=== PATIENT | female | born 1950 | race Caucasian/White ===

== ENCOUNTER 2016-12-25 16:22 | Inpatient (IN) | payer MEDICARE, MEDICAID ==
[2016-12-25] VITALS (7 sets, daily range): BP systolic 136–160; BP diastolic 62–79; PULSE 84–92; RESP 12–28; TEMP 99.7; O2SAT 93–99
[~2016-12-25] VITALS: Ht 165.1 cm; Wt 89.6 kg
[~2016-12-25 16:22] MED LIST: ALBU8I INH; AZIT250T74 PO; BENZ1 PO; CETI10 PO; DULO30 PO; FURO1TAB93 PO; GLIP5 PO; KCL20 PO; LISI10 PO; LISI20 PO; NEUR100C PO; NEUR600T PO; PRED10 PO; PRED20 PO; RANI1TAB5 PO; RISP2TAB2 PO; SYMB160A INH; TIOT18I INH; ULTR50TA PO; Z.0.OXYGENDME NC; ZANTTAB9 PO
--- NOTE | 2016-12-25 17:11 | PD ---
HPI Chief Complaint: Respiratory Distress Time Seen by Provider: 17:01 Travel History International Travel<30 days: No Contact w/Intl Traveler<30days: No Traveled to known affect area: No History of Present Illness HPI The patient is a 66-year-old female who presents to the emergency department via EMS after she was found running around her neighborhood, stating that her trailer is going to explode, and was noted to be running around the neighborhood naked. The patient does have a history of schizophrenia. When police arrived the patient was uncooperative and in complaining of shortness of breath. Therefore, EMS provided the patient Solu-Medrol 125 mg intravenously and a DuoNeb. The patient does have a history of COPD and tobacco use. The patient denies any current hallucinations or delusions, but is a poor historian. The patient denies any fever, chills, or sweats. She does have a history of shortness of breath and chronic cough per her report. The patient denies any illicit drug use or alcohol use. Patient has any suicidal ideation or homicidal ideation. However, the patient is psychotic. PFSH Past Medical History Arthritis: Yes (OA) Bipolar Disorder: Yes Anxiety: Yes Cancer: No Cardiovascular Problems: Yes (pt has hypertension) Congestive Heart Failure: Yes COPD: Yes Diabetes: Yes Patient Takes Glucophage: No (PER EMS PT IS DIABETIC BUT IS NOT TAKING MEDS ) Diminished Hearing: No Endocrine: Yes Genitourinary: No Headaches: No Hypertension: Yes Musculoskeletal: Yes Neurologic: No Psychiatric: Yes Reproductive: No Respiratory: Yes Integumentary: Yes (REDNESS BILATERAL GROIN AREA, INCONTINENT OF OF URINE ) Schizophrenia: Yes Seizures: Yes Triglycerides - High: Yes Menopausal: Yes : 6 Para: 4 Miscarriage: 1 : 1 Past Surgical History Surgical History: Unable to Obtain Abdominal Surgery: Yes (hernia repair with mesh) Hysterectomy: Yes Other Surgery: Yes (SEE ED PSYCH SCREEN AND H&P) Social History Alcohol Use: No Tobacco Use: Yes Substance Use: No Allergies-Medications (Allergen,Severity, Reaction): Coded Allergies: Cipro (Verified Allergy, Severe, RASH, 04/09/16) Sulfa (Verified Allergy, Severe, hives, 04/09/16) Remeron Kerline-Tab (Verified Allergy, Mild, 04/09/16) Reported Meds & Prescriptions Reported Meds & Active Scripts Active Zithromax Z-Kurt (Azithromycin) 250 Mg Dspk 250 Mg PO DIRECTED 500 MG (2 tabs) day 1, then 1 tab days 2-5. Deltasone (Prednisone) 20 Mg Tab 40 Mg PO DAILY 4 Days Reported Promethazine (Promethazine HCl) 12.5 Mg Tab 12.5 Mg PO Q6-8HR PRN Advair Diskus Inh (Fluticasone-Salmeterol Inh) 250-50 Mcg/Blist Aer 1 Puff INH BID Rinse mouth after use. Tramadol (Tramadol HCl) 50 Mg Tab 50-100 Mg PO Q4H PRN Spiriva Handihaler (Tiotropium Inh) 18 Mcg Cap 18 Mcg INH DAILY 1 capsule = 18 mcg K-Tab (Potassium Chloride) 20 Meq Tab 20 Meq PO DAILY Lisinopril 10 Mg Tab 10 Mg PO HS Glipizide 5 Mg Tab 5 Mg PO DAILY Take 30 minutes before a meal Gabapentin 100 Mg Cap 100 Mg PO TID Lasix (Furosemide) 40 Mg Tab 40 Mg PO DAILY Cymbalta DR (Duloxetine HCl) 30 Mg Capdr 30 Mg PO DAILY Symbicort Inh (Budesonide/Formoterol Fumarate) 160-4.5 Mcg/Act Aero 2 Puff INH BID Proair Hfa 8.5 GM Inh (Albuterol Sulfate) 90 Mcg/Act Aer 2 Puff INH QID PRN 108 mcg/actuation Review of Systems ROS Limitations: Psychotic Except as stated in HPI: all other systems reviewed are Neg Respiratory: Positive: Cough, Shortness of Breath Musculoskeletal: No: Weakness Neurologic: No: Dizziness, Focal Abnormalities Psychiatric: Positive: Disorder of Thought, No: Suicidal Ideations, Substance Abuse, Homicidal Ideation Physical Exam Narrative GENERAL: Awake, alert, 66-year-old female who states random things during the conversation. SKIN: Warm and dry. HEAD: Atraumatic. Normocephalic. EYES: Pupils equal and round. No scleral icterus. No injection or drainage. ENT: No nasal bleeding or discharge. Breath smells of tobacco. NECK: Trachea midline. No JVD. CARDIOVASCULAR: Regular rate and rhythm. No murmur appreciated. RESPIRATORY: No accessory muscle use. Prolonged expiratory phase with late wheeze. GASTROINTESTINAL: Abdomen soft, non-tender, nondistended. No rebound tenderness. MUSCULOSKELETAL: No obvious deformities. No clubbing. No cyanosis. No edema. NEUROLOGICAL: Awake and alert. No obvious cranial nerve deficits. Motor grossly within normal limits. Normal speech. Answers to name and date of , but will not tell me the year, month, president [facility]. PSYCHIATRIC: Appears psychotic. Data Data Last Documented VS Vital Signs Date Time Temp Pulse Resp B/P Pulse Ox O2 Delivery O2 Flow Rate FiO2 12/26/16 15:08 94 21 12/26/16 14:00 99.1 84 18 138/71 Room Air Orders Complete Blood Count With Diff (12/25/16 17:06) Comprehensive Metabolic Panel (12/25/16 17:06) B-Type Natriuretic Peptide (12/25/16 17:06) Magnesium (Mg) (12/25/16 17:06) Ckmb (Isoenzyme) Profile (12/25/16 17:06) Troponin I (12/25/16 17:06) Iv Access Insert/Monitor (12/25/16 17:06) Electrocardiogram (12/25/16 17:06) Ecg Monitoring (12/25/16 17:06) Oximetry (12/25/16 17:06) Oxygen Administration (12/25/16 17:06) Chest, Single Ap (12/25/16 17:06) Sodium Chloride 0.9% Flush (Ns Flush) (12/25/16 17:15) Albuterol-Ipratropium Neb (Duoneb Neb) (12/25/16 17:15) Psych Screen (12/25/16 17:06) Lactic Acid (12/25/16 17:06) Alcohol (Ethanol) (12/25/16 17:06) Drug Screen, Random Urine (12/25/16 17:06) Urinalysis - C+S If Indicated (12/25/16 17:06) Cath For Specimen (12/25/16 20:00) Diet Diabetic (12/26/16 Breakfast) Diet Diabetic (12/26/16 Lunch) Albuterol-Ipratropium Neb (Duoneb Neb) (12/26/16 14:45) Budesonide Neb (Pulmicort Respule Neb) (12/26/16 14:45) Admit Order (Ed Use Only) (12/26/16 ) Admit To Inpatient Psych (12/26/16 ) Code Status (12/26/16 16:52) Vital Signs (Adult) [id number] (12/26/16 16:52) Activity Oob Ad Cyndie (12/26/16 16:52) Level Of Observation (Psych) (12/26/16 16:52) Aims-Abnormal Invol Move Scale ONCE (12/26/16 16:52) Acetaminophen (Tylenol) (12/26/16 17:00) Magnesium Hydroxide Liq (Milk Of Magnesi (12/26/16 17:00) Al-Mag Hy-Si 40-40-4 Mg/Ml Liq (Mag-Al P (12/26/16 17:00) Nicotine 21 Mg Patch.24 Hr (Habitrol 21 (12/27/16 09:00) Basic Metabolic Panel (Bmp) (12/27/16 06:00) Lipid Profile (12/27/16 06:00) Hemoglobin (Hgb) A1c (12/27/16 06:00) Consult Hospitalist (12/26/16 ) Remove Old Patch (12/27/16 09:00) Labs Laboratory Tests Test 12/25/16 12/25/16 17:05 21:27 White Blood Count 14.1 TH/MM3 Red Blood Count 4.89 MIL/MM3 Hemoglobin 14.9 GM/DL Hematocrit 43.6 % Mean Corpuscular Volume 89.2 FL Mean Corpuscular Hemoglobin 30.5 PG Mean Corpuscular Hemoglobin 34.2 % Concent Red Cell Distribution Width 14.2 % Platelet Count 266 TH/MM3 Mean Platelet Volume 8.6 FL Neutrophils (%) (Auto) 60.8 % Lymphocytes (%) (Auto) 30.0 % Monocytes (%) (Auto) 7.9 % Eosinophils (%) (Auto) 0.6 % Basophils (%) (Auto) 0.7 % Neutrophils # (Auto) 8.6 TH/MM3 Lymphocytes # (Auto) 4.2 TH/MM3 Monocytes # (Auto) 1.1 TH/MM3 Eosinophils # (Auto) 0.1 TH/MM3 Basophils # (Auto) 0.1 TH/MM3 CBC Comment DIFF FINAL Differential Comment Sodium Level 135 MEQ/L Potassium Level 3.9 MEQ/L Chloride Level 100 MEQ/L Carbon Dioxide Level 25.1 MEQ/L Anion Gap 10 MEQ/L Blood Urea Nitrogen 10 MG/DL Creatinine 0.71 MG/DL Estimat Glomerular Filtration 82 ML/MIN Rate Random Glucose 108 MG/DL Lactic Acid Level 1.8 mmol/L Calcium Level 10.1 MG/DL Magnesium Level 1.7 MG/DL Total Bilirubin 0.5 MG/DL Aspartate Amino Transf 14 U/L (AST/SGOT) Alanine Aminotransferase 21 U/L (ALT/SGPT) Alkaline Phosphatase 155 U/L Total Creatine Kinase 82 U/L Troponin I 0.03 NG/ML B-Type Natriuretic Peptide 30 PG/ML Total Protein 6.8 GM/DL Albumin 3.7 GM/DL Ethyl Alcohol Level LESS THAN 3 MG/DL Urine Color YELLOW Urine Turbidity CLEAR Urine pH 5.5 Urine Specific Arnold 1.006 Urine Protein NEG mg/dL Urine Glucose (UA) NEG mg/dL Urine Ketones 10 mg/dL Urine Occult Blood SMALL Urine Nitrite NEG Urine Bilirubin NEG Urine Urobilinogen LESS THAN 2.0 MG/DL Urine Leukocyte Esterase NEG Urine RBC 3 /hpf Urine Squamous Epithelial <1 /hpf Cells Microscopic Urinalysis Comment CULT NOT INDICATED Urine Opiates Screen NEG Urine Barbiturates Screen NEG Urine Amphetamines Screen NEG Urine Benzodiazepines Screen NEG Urine Cocaine Screen NEG Urine Cannabinoids Screen NEG MDM Medical Decision Making Medical Screen Exam Complete: Yes Emergency Medical Condition: Yes Medical Record Reviewed: Yes Interpretation(s) EKG reveals normal sinus rhythm with a rate 89. Left bundle-branch block. Last Impressions Chest X-Ray 12/25/16 1706 Signed Impressions: Service Date/Time: Sunday, December 25, 2016 17:04 - CONCLUSION: No acute disease. Gurinder Teran MD Laboratory Tests Test 12/25/16 12/25/16 17:05 21:27 White Blood Count 14.1 TH/MM3 Red Blood Count 4.89 MIL/MM3 Hemoglobin 14.9 GM/DL Hematocrit 43.6 % Mean Corpuscular Volume 89.2 FL Mean Corpuscular Hemoglobin 30.5 PG Mean Corpuscular Hemoglobin 34.2 % Concent Red Cell Distribution Width 14.2 % Platelet Count 266 TH/MM3 Mean Platelet Volume 8.6 FL Neutrophils (%) (Auto) 60.8 % Lymphocytes (%) (Auto) 30.0 % Monocytes (%) (Auto) 7.9 % Eosinophils (%) (Auto) 0.6 % Basophils (%) (Auto) 0.7 % Neutrophils # (Auto) 8.6 TH/MM3 Lymphocytes # (Auto) 4.2 TH/MM3 Monocytes # (Auto) 1.1 TH/MM3 Eosinophils # (Auto) 0.1 TH/MM3 Basophils # (Auto) 0.1 TH/MM3 CBC Comment DIFF FINAL Differential Comment Sodium Level 135 MEQ/L Potassium Level 3.9 MEQ/L Chloride Level 100 MEQ/L Carbon Dioxide Level 25.1 MEQ/L Anion Gap 10 MEQ/L Blood Urea Nitrogen 10 MG/DL Creatinine 0.71 MG/DL Estimat Glomerular Filtration 82 ML/MIN Rate Random Glucose 108 MG/DL Lactic Acid Level 1.8 mmol/L Calcium Level 10.1 MG/DL Magnesium Level 1.7 MG/DL Total Bilirubin 0.5 MG/DL Aspartate Amino Transf 14 U/L (AST/SGOT) Alanine Aminotransferase 21 U/L (ALT/SGPT) Alkaline Phosphatase 155 U/L Total Creatine Kinase 82 U/L Troponin I 0.03 NG/ML B-Type Natriuretic Peptide 30 PG/ML Total Protein 6.8 GM/DL Albumin 3.7 GM/DL Ethyl Alcohol Level LESS THAN 3 MG/DL Urine Color YELLOW Urine Turbidity CLEAR Urine pH 5.5 Urine Specific Arnold 1.006 Urine Protein NEG mg/dL Urine Glucose (UA) NEG mg/dL Urine Ketones 10 mg/dL Urine Occult Blood SMALL Urine Nitrite NEG Urine Bilirubin NEG Urine Urobilinogen LESS THAN 2.0 MG/DL Urine Leukocyte Esterase NEG Urine RBC 3 /hpf Urine Squamous Epithelial <1 /hpf Cells Microscopic Urinalysis Comment CULT NOT INDICATED Urine Opiates Screen NEG Urine Barbiturates Screen NEG Urine Amphetamines Screen NEG Urine Benzodiazepines Screen NEG Urine Cocaine Screen NEG Urine Cannabinoids Screen NEG Differential Diagnosis Differential diagnosis includes psychosis, schizophrenia, delirium, COPD, pneumonia, sepsis, congestive heart failure, pleural effusion, medication reaction. Narrative Course IV was established, labs are drawn and sent, and the patient was placed on cardiac telemetry monitoring and continuous pulse oximetry monitoring. EKG was ordered and interpreted. Chest x-ray was ordered. The patient received steroids prior to arrival, was administered duo nebs 2 in the emergency department. Psychiatric evaluation was ordered. The patient's chest x-ray was unremarkable. The patient's oxygen saturation varied between 9396% on room air. The patient had no obvious distress, was lying supine comfortably. The patient is medically clear to be evaluated by psychiatry. Patient is obviously psychotic with a history of schizophrenia, psychiatric evaluation has been ordered, disposition as per psych. Diagnosis Primary Impression: Psychosis Qualified Code: F29 - Psychosis, unspecified psychosis type Additional Impressions: Schizophrenia Qualified Code: F20.9 - Schizophrenia, unspecified type COPD (chronic obstructive pulmonary disease) Qualified Code: J44.1 - Chronic obstructive pulmonary disease with acute exacerbation Med/Other Pt SpecificInfo: Prescription(s) given Scripts Azithromycin (Zithromax Z-Kurt)250 Mg [id number] Mg PO DIRECTED #1 DSPK Ref 0 500 MG (2 tabs) day 1, then 1 tab days 2-5. Prov:Alvin Lancaster MD 12/26/16 Prednisone (Deltasone)20 Mg Tab40 Mg PO DAILY 4 Days Ref 0 Prov:Alvin Lancaster MD 12/26/16 Condition: Stable Alvin Lancaster MD Dec 25, 2016 17:11
[2016-12-25] MEDS ORDERED: SODIUM CHLORIDE 0.9% FLUSH 5 ML FLUSH IVF PRN (17:15)
--- NOTE | 2016-12-25 17:28 | RADRPT ---
EXAM DATE/TIME: 12/25/2016 17:04 [facility] COMPARISON: CHEST SINGLE AP, April 09, 2016, 18:41. INDICATIONS : Short of breath. MEDICAL HISTORY : Chronic obstructive pulmonary disease. Dementia SURGICAL HISTORY : None. ENCOUNTER: Initial ACUITY: 1 day PAIN SCORE: 0/10 LOCATION: Bilateral chest FINDINGS: A single view of the chest demonstrates the lungs to be symmetrically aerated without evidence of mas s, infiltrate or effusion. The cardiomediastinal contours are unremarkable. Osseous structures are intact. CONCLUSION: No acute disease. Gurinder Teran MD on December 25, 2016 at 17:26 Board Certified Radiologist. This report was verified electronically.
[2016-12-25] MEDS: RESP: ALBUTEROL 2.5 MG/IPRATROPIUM 0.5 MG NEB (SCH) INH (17:37)
[2016-12-25] MEDS ORDERED: ALBUAER3 INH (18:19)
[2016-12-25] MEDS ORDERED: LISI10TA3 PO (18:19)
[2016-12-25] MEDS ORDERED: SPIRCAP INH (18:19)
[2016-12-25] MEDS ORDERED: PROM12.54 PO (18:19)
[2016-12-25] MEDS ORDERED: SYMB160A INH (18:19)
[2016-12-25] MEDS ORDERED: GABA100C4 PO (18:19)
[2016-12-25] MEDS ORDERED: CYMB30CA PO (18:19)
[2016-12-25] MEDS ORDERED: GLIP5TAB8 PO (18:19)
[2016-12-25] MEDS ORDERED: FURO1TAB60 PO (18:19)
[2016-12-25] MEDS ORDERED: ADVA250A INH (18:19)
[2016-12-25] MEDS ORDERED: POTA1TAB4 PO (18:19)
[2016-12-25] MEDS ORDERED: TRAM50TA PO (18:19)
[2016-12-25 18:34] LABS: AUTOMATED NEUTROPHIL # 8.6 TH/MM3 (1.8-7.7); BASOPHIL # 0.1 TH/MM3 (0-0.2); BASOPHIL % 0.7 % (0.0-2.0); EOSINOPHIL # 0.1 TH/MM3 (0-0.4); EOSINOPHIL % 0.6 % (0.0-4.0); HEMATOCRIT 43.6 % (35.0-46.0); HEMO FLAGS DIFF FINAL; LYMPHOCYTE # 4.2 TH/MM3 (1.0-4.8); MEAN CELL VOLUME 89.2 FL (80.0-100.0); MEAN CORPUSCULAR HEMOGLOBIN 30.5 PG (27.0-34.0); MEAN CORPUSCULAR HGB CONC 34.2 % (32.0-36.0); MONO % 7.9 % (0.0-8.0); NEUT % 60.8 % (16.0-70.0); PLATELET COUNT 266 TH/MM3 (150-450); RED BLOOD COUNT 4.89 MIL/MM3 (4.00-5.30); RED CELL DISTRIBUTION WIDTH 14.2 % (11.6-17.2); WHITE BLOOD COUNT 14.1 TH/MM3 (4.0-11.0)
[2016-12-25 18:51] LABS: ANION GAP 10 MEQ/L (5-15); AST (GOT) 14 U/L (15-37); BICARBONATE 25.1 MEQ/L (21.0-32.0); BLOOD UREA NITROGEN 10 MG/DL (7-18); CHLORIDE 100 MEQ/L (98-107); GLOMERULAR FILTRATION RATE 82 ML/MIN (>89); MAGNESIUM 1.7 MG/DL (1.5-2.5); POTASSIUM 3.9 MEQ/L (3.5-5.1); SODIUM (NA) 135 MEQ/L (136-145)
[2016-12-25 18:56] LABS: ALKALINE PHOSPHATASE 155 U/L (45-117); ALT (GPT) 21 U/L (10-53); TOTAL BILIRUBIN ADULT 0.5 MG/DL (0.2-1.0)
[2016-12-25 18:57] LABS: CREATINE KINASE 82 U/L (26-192)
[2016-12-25 21:52] LABS: BLOOD, URINE SMALL (NEG); COMMENT (UR) CULT NOT INDICATED; CULTURE IF INDICATED CULT NOT INDICATED; GLUCOSE,URINE NEG (NEG); KETONE, URINE 10 mg/dL (NEG); NITRITE,URINE NEG (NEG); PH, URINE 5.5 (5.0-8.5); SQUAMOUS EPITHELIAL CELL URINE <1 /hpf (0-5); URINE COLOR YELLOW (YELLW/STRAW)
[2016-12-25 21:57] LABS: AMPHETAMINE, URINE NEG (NEG); BARBITURATES, URINE NEG (NEG); COCAINE, URINE NEG (NEG)
[2016-12-26] VITALS (7 sets, daily range): BP systolic 138–158; BP diastolic 62–72; PULSE 69–90; RESP 12–18; TEMP 98.6–99.1; O2SAT 92–96
[2016-12-26] MEDS ORDERED: ZITHTAB PO (00:54)
[2016-12-26] MEDS ORDERED: PRED-503 PO (00:54)
[2016-12-26] MEDS ORDERED: RESP: BUDESONIDE 0.5 MG/2 ML NEB NEB ONE (14:45)
[2016-12-26] MEDS: RESP: ALBUTEROL 2.5 MG/IPRATROPIUM 0.5 MG NEB (SCH) INH ×3 (14:45→15:08)
--- NOTE | 2016-12-26 15:14 | EKG ---
Date Performed: 12/25/2016 Time Performed: 18:59:10 PTAGE: 66 years EKG: Sinus rhythm LEFT BUNDLE BRANCH BLOCK Compared to previous tracing, left bundle branch block is new ABNORMAL ECG PREVIOUS TRACING : 11/04/2015 19.04 DOCTOR: Art Ko Interpretating Date/Time 12/26/2016 15:14:13
--- NOTE | 2016-12-26 16:40 | PD ---
History of Present Illness Chief Complaint: Respiratory Distress Time Seen by Provider: 16:30 Travel History International Travel<30 Days: No Contact w/Intl Traveler<30days: No Known affected area: No Legal Status Legal Status: Hale Act Hale Act Signed By: Geoffrey Grijalva Comment: [place] History of Present Illness: History of Present Illness The patient is a 66-year-old female who presents to the emergency department via EMS on voluntary basis after she was found running around her neighborhood, stating that her trailer is going to explode, and was noted to be running around the neighborhood naked. When police arrived the patient was uncooperative and in complaining of shortness of breath. However, the patient is psychotic. Seen in J pod. Awake, alert, oriented, speech is loud. Patient continues to report that her house was going to explode. She is unable to to provide any other information and has no explanation for why she was running around naked. Mood is irritable. Appears to be reacting to internal stimuli. It is unclear if she has been medication compliant since her discharge from inpatient care. She continues to state that she is here" to see a lung doctor". No other clinical information is obtained. PFSH Past Medical History Arthritis: Yes (OA) Bipolar Disorder: Yes Anxiety: Yes Cancer: No Cardiovascular Problems: Yes (pt has hypertension) Congestive Heart Failure: Yes COPD: Yes Diabetes: Yes Patient Takes Glucophage: No (PER EMS PT IS DIABETIC BUT IS NOT TAKING MEDS ) Diminished Hearing: No Endocrine: Yes Genitourinary: No Headaches: No Hypertension: Yes Musculoskeletal: Yes Neurologic: No Psychiatric: Yes Reproductive: No Respiratory: Yes Integumentary: Yes (REDNESS BILATERAL GROIN AREA, INCONTINENT OF OF URINE ) Schizophrenia: Yes Seizures: Yes Triglycerides - High: Yes Menopausal: Yes : 6 Para: 4 Miscarriage: 1 : 1 Past Surgical History Surgical History: Unable to Obtain Abdominal Surgery: Yes (hernia repair with mesh) Hysterectomy: Yes Other Surgery: Yes (SEE ED PSYCH SCREEN AND H&P) Psychiatric History Psychiatric History Hx Psychiatric Treatment: HX OF ANXIETY, BIPOLAR D/O AND SCHIZOPHRENIA History of Inpatient Treatment: Yes (Last hosp in Oct under the care of Dr. Pruitt) Social History Hx Alcohol Use: No Hx Tobacco Use: Yes Hx Substance Use: No Substance Use Type: Nicotine/Cigarettes Hx of Substance Use Treatment: No Family Psychiatric History Unable to obtain Allergies-Medications (Allergen,Severity, Reaction): Coded Allergies: Cipro (Verified Allergy, Severe, RASH, 04/09/16) Sulfa (Verified Allergy, Severe, hives, 04/09/16) Remeron Kerline-Tab (Verified Allergy, Mild, 04/09/16) Reported Meds & Prescriptions Reported Meds & Active Scripts Active Zithromax Z-Kurt (Azithromycin) 250 Mg Dspk 250 Mg PO DIRECTED 500 MG (2 tabs) day 1, then 1 tab days 2-5. Deltasone (Prednisone) 20 Mg Tab 40 Mg PO DAILY 4 Days Reported Promethazine (Promethazine HCl) 12.5 Mg Tab 12.5 Mg PO Q6-8HR PRN Advair Diskus Inh (Fluticasone-Salmeterol Inh) 250-50 Mcg/Blist Aer 1 Puff INH BID Rinse mouth after use. Tramadol (Tramadol HCl) 50 Mg Tab 50-100 Mg PO Q4H PRN Spiriva Handihaler (Tiotropium Inh) 18 Mcg Cap 18 Mcg INH DAILY 1 capsule = 18 mcg K-Tab (Potassium Chloride) 20 Meq Tab 20 Meq PO DAILY Lisinopril 10 Mg Tab 10 Mg PO HS Glipizide 5 Mg Tab 5 Mg PO DAILY Take 30 minutes before a meal Gabapentin 100 Mg Cap 100 Mg PO TID Lasix (Furosemide) 40 Mg Tab 40 Mg PO DAILY Cymbalta DR (Duloxetine HCl) 30 Mg Capdr 30 Mg PO DAILY Symbicort Inh (Budesonide/Formoterol Fumarate) 160-4.5 Mcg/Act Aero 2 Puff INH BID Proair Hfa 8.5 GM Inh (Albuterol Sulfate) 90 Mcg/Act Aer 2 Puff INH QID PRN 108 mcg/actuation Review of Systems ROS Limitations: Uncooperative, Psychotic Respiratory: COMPLAINS OF: Shortness of breath Exam Alert: Yes [place]: Person, Place, Date (partial) Mood: Angry Affect: Other (congruent) Speech: Clear, Illogical Eye Contact: Normal Memory Intact: Comment (not formally tetsed) Hallucinations: Other (appears internally preocupied) Delusions: Yes Delusion Type: Paranoid Suicidal: Ideation (deneis ) Homicidal: Ideation (deneis) Insight/Judgement poor. poor MDM Medical Decision Making Medical Record Reviewed: Yes Assessment/Plan Patient placed under a BA at this time for further evaluation and to maintain safety. Inpatient psychiatric treatmentis recommended to maintain her safety and stabilize meidcations Orders Complete Blood Count With Diff (12/25/16 17:06) Comprehensive Metabolic Panel (12/25/16 17:06) B-Type Natriuretic Peptide (12/25/16 17:06) Magnesium (Mg) (12/25/16 17:06) Ckmb (Isoenzyme) Profile (12/25/16 17:06) Troponin I (12/25/16 17:06) Iv Access Insert/Monitor (12/25/16 17:06) Electrocardiogram (12/25/16 17:06) Ecg Monitoring (12/25/16 17:06) Oximetry (12/25/16 17:06) Oxygen Administration (12/25/16 17:06) Chest, Single Ap (12/25/16 17:06) Sodium Chloride 0.9% Flush (Ns Flush) (12/25/16 17:15) Albuterol-Ipratropium Neb (Duoneb Neb) (12/25/16 17:15) Psych Screen (12/25/16 17:06) Lactic Acid (12/25/16 17:06) Alcohol (Ethanol) (12/25/16 17:06) Drug Screen, Random Urine (12/25/16 17:06) Urinalysis - C+S If Indicated (12/25/16 17:06) Cath For Specimen (12/25/16 20:00) Diet Diabetic (12/26/16 Breakfast) Diet Diabetic (12/26/16 Lunch) Diet Diabetic (12/26/16 Dinner) Albuterol-Ipratropium Neb (Duoneb Neb) (12/26/16 14:45) Budesonide Neb (Pulmicort Respule Neb) (12/26/16 14:45) Results Vital Signs Date Time Temp Pulse Resp B/P Pulse Ox O2 Delivery O2 Flow Rate FiO2 12/26/16 15:08 94 21 12/26/16 14:00 99.1 84 18 138/71 92 Room Air 12/26/16 07:26 69 16 149/68 95 Room Air 12/26/16 06:24 90 18 144/66 94 Room Air 12/26/16 02:57 78 12 158/62 96 Room Air 12/25/16 23:37 88 16 140/66 93 Room Air 12/25/16 22:25 84 14 136/62 96 Room Air 12/25/16 21:55 86 12 148/68 94 Room Air 12/25/16 20:50 84 12 146/70 96 Room Air 12/25/16 19:42 88 14 150/72 99 Room Air 12/25/16 18:51 95 Room Air 12/25/16 18:51 95 Room Air 12/25/16 16:45 28 94 Room Air Laboratory Tests Test 12/25/16 12/25/16 17:05 21:27 White Blood Count 14.1 Red Blood Count 4.89 Hemoglobin 14.9 Hematocrit 43.6 Mean Corpuscular Volume 89.2 Mean Corpuscular Hemoglobin 30.5 Mean Corpuscular Hemoglobin 34.2 Concent Red Cell Distribution Width 14.2 Platelet Count 266 Mean Platelet Volume 8.6 Neutrophils (%) (Auto) 60.8 Lymphocytes (%) (Auto) 30.0 Monocytes (%) (Auto) 7.9 Eosinophils (%) (Auto) 0.6 Basophils (%) (Auto) 0.7 Neutrophils # (Auto) 8.6 Lymphocytes # (Auto) 4.2 Monocytes # (Auto) 1.1 Eosinophils # (Auto) 0.1 Basophils # (Auto) 0.1 CBC Comment DIFF FINAL Differential Comment Sodium Level 135 Potassium Level 3.9 Chloride Level 100 Carbon Dioxide Level 25.1 Anion Gap 10 Blood Urea Nitrogen 10 Creatinine 0.71 Estimat Glomerular Filtration 82 Rate Random Glucose 108 Lactic Acid Level 1.8 Calcium Level 10.1 Magnesium Level 1.7 Total Bilirubin 0.5 Aspartate Amino Transf 14 (AST/SGOT) Alanine Aminotransferase 21 (ALT/SGPT) Alkaline Phosphatase 155 Total Creatine Kinase 82 Troponin I 0.03 B-Type Natriuretic Peptide 30 Total Protein 6.8 Albumin 3.7 Ethyl Alcohol Level LESS THAN 3 Urine Color YELLOW Urine Turbidity CLEAR Urine pH 5.5 Urine Specific [place] 1.006 Urine Protein NEG Urine Glucose (UA) NEG Urine Ketones 10 Urine Occult Blood SMALL Urine Nitrite NEG Urine Bilirubin NEG Urine Urobilinogen LESS THAN 2.0 Urine Leukocyte Esterase NEG Urine RBC 3 Urine Squamous Epithelial <1 Cells Microscopic Urinalysis Comment CULT NOT INDICATED Urine Opiates Screen NEG Urine Barbiturates Screen NEG Urine Amphetamines Screen NEG Urine Benzodiazepines Screen NEG Urine Cocaine Screen NEG Urine Cannabinoids Screen NEG Diagnosis Primary Impression: Schizophrenia Additional Impression: Psychosis Admitting Information Admitting Physician Requests: Admit Prescriptions Azithromycin (Zithromax Z-Kurt)250 Mg [id number] Mg PO DIRECTED #1 DSPK Ref 0 500 MG (2 tabs) day 1, then 1 tab days 2-5. Prov:Alvin Lancaster MD 12/26/16 Prednisone (Deltasone)20 Mg Tab40 Mg PO DAILY 4 Days Ref 0 Prov:Alvin Lancaster MD 12/26/16 Condition: Stable Problem Qualifiers Primary Impression: Schizophrenia Qualified Code: F20.9 - Schizophrenia, unspecified type Additional Impression: Psychosis Qualified Code: F29 - Psychosis, unspecified psychosis type Lisa Fall Dec 26, 2016 16:40
[2016-12-26] MEDS ORDERED: MAGNESIUM HYDROXIDE SUSP 30 ML CUP PO PRN (17:00)
[2016-12-26] MEDS ORDERED: ACETAMINOPHEN 325 MG TAB PO PRN (17:00)
[2016-12-26] MEDS ORDERED: ALUMINUM/MAGNESIUM/SIMETH 30 ML CUP PO PRN (17:00)
[2016-12-26] MEDS: GABAPENTIN 100 MG CAP PO SCH (18:00)
[2016-12-26] MEDS: LISINOPRIL 10 MG TAB PO SCH (20:52)
[2016-12-26] MEDS ORDERED: NON-FORMULARY DRUG (Fluticasone-Salmeterol Inh (Advair Diskus Inh) 1 PUFF) INH SCH (21:00)
[2016-12-26] MEDS: BUDESONIDE-FORMOTEROL 160/4.5 MCG INHALER INH SCH (21:00)
[2016-12-27] MEDS ORDERED: GLUCAGON 1 MG/ML VIAL OTHER PRN (05:00)
[2016-12-27] MEDS ORDERED: DEXTROSE 50% IN WATER 50 ML VIAL(D50) IV PUSH PRN (05:00)
[2016-12-27] MEDS: ALBUTEROL SULFATE 90 MCG/ACT HFA 8 GM INHALER INH PRN ×2 (05:08→08:15)
[2016-12-27 05:15] VITALS: BP 139/84; PULSE 71; RESP 18; TEMP 97.8; O2SAT 97
--- NOTE | 2016-12-27 05:35 | PD.CONS ---
HPI Service [facility] Consult Requested By Psychiatric services Reason for Consult Medical management including COPD Primary Care Physician Chino Hoffman MD Diagnoses: History of Present Illness This 66-year-old female patient who is currently an inpatient psychiatric center we have been consulted for assistance with medical management including COPD. Patient appears to be a poor historian and is agitated with questioning therefore information gathered from patient as well as prior computerized charting. Patient has a past medical history which includes schizophrenia, diabetes mellitus type 2, hypertension and COPD. In review of records patient was found running naked [place] her [place] stating that her trailer was going to explode. Patient as she is here she reports, "I have no home." Patient reports subjective fever but unable to give exact temperature. Patient MAXIMUM TEMPERATURE since arriving emergency department 99.7. Patient denies chills cough congestion chest pain nausea vomiting or diarrhea. Patient does report shortness of breath stating that she has a, "collapsed lung." Chest x- ray reviewed no pneumothorax identified in fact no acute disease identified on chest x-ray. Review of Systems Except as stated in HPI: all other systems reviewed are Neg Past Family Social History Allergies: Coded Allergies: Cipro (Verified Allergy, Severe, RASH, 04/09/16) Sulfa (Verified Allergy, Severe, hives, 04/09/16) Remeron Kerline-Tab (Verified Allergy, Mild, 04/09/16) Past Medical History schizophrenia, diabetes mellitus type 2, hypertension and COPD. Past Surgical History Abdominal hernia repair, hysterectomy Reported Medications Promethazine (Promethazine HCl) 12.5 Mg Tab 12.5 Mg PO Q6-8HR PRN Advair Diskus Inh (Fluticasone-Salmeterol Inh) 250-50 Mcg/Blist Aer 1 Puff INH BID Rinse mouth after use. Tramadol (Tramadol HCl) 50 Mg Tab 50-100 Mg PO Q4H PRN Spiriva Handihaler (Tiotropium Inh) 18 Mcg Cap 18 Mcg INH DAILY 1 capsule = 18 mcg K-Tab (Potassium Chloride) 20 Meq Tab 20 Meq PO DAILY Lisinopril 10 Mg Tab 10 Mg PO HS Glipizide 5 Mg Tab 5 Mg PO DAILY Take 30 minutes before a meal Gabapentin 100 Mg Cap 100 Mg PO TID Lasix (Furosemide) 40 Mg Tab 40 Mg PO DAILY Cymbalta DR (Duloxetine HCl) 30 Mg Capdr 30 Mg PO DAILY Symbicort Inh (Budesonide/Formoterol Fumarate) 160-4.5 Mcg/Act Aero 2 Puff INH BID Proair Hfa 8.5 GM Inh (Albuterol Sulfate) 90 Mcg/Act Aer 2 Puff INH QID PRN 108 mcg/actuation Active Ordered Medications Current Medications Medications (Trade) Dose Ordered Sig/Artur Route Start Time Stop Time Status Last Admin (NS Flush) 2 ml UNSCH PRN IVF 12/25/16 17:15 (Tylenol) 650 mg Q4H PRN PO 12/26/16 17:00 (Milk Of Magnesia Liq) 30 ml DAILY PRN PO 12/26/16 17:00 (Mag-Al Plus Susp Liq) 30 ml Q6H PRN PO 12/26/16 17:00 (Habitrol 21 Mg Patch.24 Hr) 1 patch DAILY T-DERMAL 12/27/16 09:00 Miscellaneous Information 1 DAILY T-DERMAL 12/27/16 09:00 (Proair Hfa Inh) 2 puff QID PRN INH 12/26/16 17:00 12/27/16 05:08 (Symbicort 160-4.5 Inh) 2 puff BID INH 12/26/16 21:00 (Cymbalta Dr) 30 mg DAILY PO 12/27/16 09:00 Future Hold (Lasix) 40 mg DAILY PO 12/27/16 09:00 (Neurontin) 100 mg TID PO 12/26/16 18:00 12/26/16 18:00 (Prinivil) 10 mg HS PO 12/26/16 21:00 12/26/16 20:52 (KCl) 20 meq DAILY PO 12/27/16 09:00 (Spiriva Inh) 18 mcg DAILY INH 12/27/16 09:00 (D50w (Vial) Inj) 25 ml UNSCH PRN IV PUSH 12/27/16 05:00 (Glucagon Inj) 1 mg UNSCH PRN OTHER 12/27/16 05:00 Family History Mother had cancer of unknown type Social History Smokes one pack serous per day for the past 30 years Denies EtOH use or illicit drug use Physical Exam Vital Signs Vital Signs Date Time Temp Pulse Resp B/P Pulse Ox O2 Delivery O2 Flow Rate FiO2 12/27/16 05:15 97.8 71 18 139/84 97 12/26/16 18:32 98.6 79 16 155/72 12/26/16 17:52 80 18 157/70 93 Room Air 12/26/16 15:08 94 21 12/26/16 14:00 99.1 84 18 138/71 92 Room Air 12/26/16 07:26 69 16 149/68 95 Room Air 12/26/16 06:24 90 18 144/66 94 Room Air Physical Exam GENERAL: This is a well-nourished, well-developed patient, in no apparent distress. SKIN: No rashes, ecchymoses or lesions. Cool and dry. HEAD: Atraumatic. Normocephalic. No temporal or scalp tenderness. EYES: Extraocular motions intact. No scleral icterus. No injection or drainage. CARDIOVASCULAR: Regular rate and rhythm without murmurs, gallops, or rubs. RESPIRATORY: Clear to auscultation. Breath sounds equal bilaterally. No wheezes , rales, or rhonchi. GASTROINTESTINAL: Abdomen soft, non-tender, nondistended. No guarding. MUSCULOSKELETAL: Extremities without clubbing, cyanosis, or edema. No joint tenderness, effusion, or edema noted. No calf tenderness. Negative Homans sign bilaterally. NEUROLOGICAL: Awake and alert. No focal deficits identified. Motor and sensory grossly within normal limits. Five out of 5 muscle strength in all muscle groups. Normal speech. Result Diagram: 12/25/16170412/25/161704 Imaging Last Impressions Chest X-Ray 12/25/161705 Signed Impressions: Service Date/Time: Sunday, December 25, 2016 17:04 - CONCLUSION: No acute disease. Gurinder Teran MD Assessment and Plan Assessment and Plan This 66-year-old female patient who is currently an inpatient psychiatric center we have been consulted for assistance with medical management including COPD. Patient appears to be a poor historian and is agitated with questioning therefore information gathered from patient as well as prior computerized charting. Patient has a past medical history which includes schizophrenia, diabetes mellitus type 2, hypertension and COPD. Paranoid schizophrenia management per psychiatric team COPD chronic does not appear to be in acute exacerbation Continue Symbicort scheduled, Spiriva scheduled and albuterol as needed DC Advair Chest x-ray reviewed by myself as well as Dr. Parrish reveals no acute disease Mild leukocytosis 14.1 possibly stress response will recheck CBC Diabetes mellitus continue home glipizide with Accu-Cheks before meals at bedtime sliding scale insulin coverage Hypertension continue lisinopril DVT prophylaxis patient is ambulatory Discussed plan of care with patient as well as RN Written by Hayley Alicea, acting as scribe for Dr. Parrish on 12/27/16 at 05: 33. All or portions of this note were transcribed by scribe [Hayley Alicea]. I , Dr. Darinel Parrish personally performed the history, physical exam, and medical decision making; and confirmed the accuracy of the information in the transcribed note. Authenticated by Dr. Darinel Parrish on 12/27/16 at 0533 Hayley Alicea Dec 27, 2016 05:34 Darinel Parrish MD Jan 13, 2017 08:27
[2016-12-27] MEDS: INSULIN ASPART SUPPLEMENTAL SCALE SQ SCH ×4 (07:00→20:26)
[2016-12-27] MEDS ORDERED: INSULIN ASPART SUPPLEMENTAL SCALE SQ SCH (07:00)
[2016-12-27 08:26] LABS: HDL CHOLESTEROL 48.8 MG/DL (40.0-60.0)
[2016-12-27 08:32] LABS: ANION GAP 7 MEQ/L (5-15); BICARBONATE 26.8 MEQ/L (21.0-32.0); BLOOD UREA NITROGEN 14 MG/DL (7-18); CHLORIDE 106 MEQ/L (98-107); GLOMERULAR FILTRATION RATE 71 ML/MIN (>89); LDL CHOLESTEROL 66 MG/DL (0-99); POTASSIUM 4.6 MEQ/L (3.5-5.1); SODIUM (NA) 140 MEQ/L (136-145)
[2016-12-27] MEDS: REMOVE OLD PATCH T-DERMAL SCH (09:00)
[2016-12-27] MEDS ORDERED: diphenhydrAMINE HCL 50 MG/ML VIAL IM ONE (09:15)
[2016-12-27] MEDS: NICOTINE 21 MG/24 HR PATCH T-DERMAL SCH (09:56)
[2016-12-27] MEDS: GABAPENTIN 100 MG CAP PO SCH ×3 (09:56→18:40)
[2016-12-27] MEDS: glipiZIDE 5 MG TAB PO SCH (09:56)
[2016-12-27] MEDS: POTASSIUM CHLORIDE 20 MEQ CONTROLLED RELEASE TAB PO SCH (09:57)
[2016-12-27] MEDS: FUROSEMIDE 40 MG TAB PO SCH (09:57)
[2016-12-27] MEDS: TIOTROPIUM BROMIDE 18 MCG INH INH SCH (09:58)
[2016-12-27] MEDS: BUDESONIDE-FORMOTEROL 160/4.5 MCG INHALER INH SCH ×2 (10:00→21:00)
[2016-12-27] MEDS ORDERED: MAGNESIUM HYDROXIDE SUSP 30 ML CUP PO PRN (12:15)
[2016-12-27] MEDS ORDERED: ALUMINUM/MAGNESIUM/SIMETH 30 ML CUP PO PRN (12:15)
[2016-12-27] MEDS ORDERED: ACETAMINOPHEN 325 MG TAB PO PRN (12:15)
[2016-12-27] MEDS ORDERED: diphenhydrAMINE HCL 50 MG CAP PO PRN ×2 (12:15)
--- NOTE | 2016-12-27 12:25 | HHI.HP ---
Provisional Diagnosis Admission Date Dec 26, 2016 at 16:58 [place] I. Schizophrenia chronic paranoid type f20.0 Certification of Person's Competence To Provide Express and Informed Consent I have personally examined Jolynn Zuniga , a person being served at [facility] on, Dec 27, 2016 12:15. Express and informed consent means consent voluntarily given in writing, by a competent person, after sufficient explanation and disclosure of the subject matter involved to enable the person to make a knowing and willful decision without any element of force, fraud, deceit, duress, or other form of constraint or coercion. This person is 18 years of age or older, is not now known to be incompetent to consent to treatment with a guardian advocate, and does not have a health care surrogate or proxy currently making medical treatment decisions. I have found this person to be one of the following: [] Competent to provide express and informed consent, as defined above, for voluntary admission to this facility and is competent to provide express and informed consent for treatment. He/she has the consistent capacity to make well reasoned, willful, and knowing decisions concerning his or her medical or mental health treatment. The person fully and consistently understands the purpose of the admission for examination/placement and is fully capable of personally exercising all rights [place] [] Incompetent to provide express and informed consent to voluntary admission, and this is incompetent to provide express and informed consent to treatment. The person must be transferred to involuntary status and a petition for a guardian advocate filed with the Circuit Court. [x] Refusing to provide express and informed consent to voluntary admission but is competent to provide express and informed consent for treatment. The person must be discharged or transferred to involuntary status. Form shall be completed within 24 hours of a person's arrival at the receiving facility and filed in the clinical record of each person: 1. Admitted on a voluntary basis 2. Permitted to provide express and informed consent to his/her own treatment 3. Allowed to transfer from involuntary to voluntary status 4. Prior to permitting a person to consent to his or her own treatment after having been previously found incompetent to consent to treatment. History of Present Illness Capacity: Has Capacity (has capacity to sign for medications lacks capacity to sign for admission) HPI Patient is a 66-year-old white female known to us from prior hospitalization most recently being under my care 11/05/15 through 11/18/15 visited [phone]. At this time patient was admitted under [place] act signed by Lisa Fall nurse practitioner stating patient found outside her home naked claiming her home was going to explode patient seen screened in the ED urine toxicology negative bladder: Negative. At the present time patient sitting in the day room on 2500 nurse Lacie present throughout session patient loud labile ranging from talking to me markedly confused and disorganized to screaming at perceived noises around her. However she is fairly well oriented she notices and [place] in [place]'s 2016 abnormality was Gutierrez's Day. Though she does state that she knows there are gas leaks in her trailer that she is afraid of them which is why she went outside make it to get help. She is vague about compliance with her medication states she lives that Mr. Zuniga though she is vague about whether it is her a lot. She denies having any children. Does deny any past physical or sexual abuse. Does denies suicidality or homicidality. While she denies voices she appears to be responding to internal stimuli he does have some significant thought blocking. In any event at the present time patient meets criteria for involuntary psychiatric hospitalization under the [place] act I'll do first opinion requests second opinion. The first will be compliant with her medications we'll continue her medications through the med reconciliation and also add Respinol 2 mg M tab twice a day. Hopefully we can get some further collaborating evidence and history if there is a family member that lives with her Review of Systems ROS Limitations: Psychotic, Other (labile) Except as stated in HPI: all other systems reviewed are Neg Past Psych History Psychological trauma history Patient denies physical or sexual abuse Violence risk - others (6 mos) Low Violence risk - self (6 mos) Low Substance Abuse History Drugs/Alcohol past 12 months Denies Past Family Social History Coded Allergies: Cipro (Verified Allergy, Severe, RASH, 04/09/16) Sulfa (Verified Allergy, Severe, hives, 04/09/16) Remeron Kerline-Tab (Verified Allergy, Mild, 04/09/16) Past Medical History Multiple please see hospitalist Active Scripts Azithromycin (Zithromax Z-Kurt)250 Mg [id number] Mg PO DIRECTED #1 DSPK Ref 0 500 MG (2 tabs) day 1, then 1 tab days 2-5. Prov:Alvin Lancaster MD 12/26/16 Prednisone (Deltasone)20 Mg Tab40 Mg PO DAILY 4 Days Ref 0 Prov:Alvin Lancaster MD 12/26/16 Reported Medications Promethazine 12.5 Mg Tab12.5 Mg PO Q6-8HR PRN (NAUSEA OR VOMITING) Ref 0 12/25/16 Fluticasone-Salmeterol Inh (Advair Diskus Inh)250-50 Mcg/Blist Aer1 Puff INH BID #1 INHALER Ref 0 Rinse mouth after use. 12/25/16 Tramadol 50 Mg [id number] Mg PO Q4H PRN (PAIN) Ref 0 12/25/16 Tiotropium Inh (Spiriva Handihaler)18 Mcg Cap18 Mcg INH DAILY #30 CAP Ref 0 1 capsule = 18 mcg 12/25/16 Potassium Chloride ER (K-Tab)20 Meq Tab20 Meq PO DAILY #30 TAB Ref 0 12/25/16 Lisinopril 10 Mg Tab10 Mg PO HS #30 TAB Ref 0 12/25/16 Glipizide 5 Mg Tab5 Mg PO DAILY #30 TAB Ref 0 Take 30 minutes before a meal 12/25/16 Gabapentin 100 Mg [id number] Mg PO TID #90 CAP Ref 0 12/25/16 Furosemide (Lasix)40 Mg Tab40 Mg PO DAILY #30 TAB Ref 0 12/25/[address] (Cymbalta DR)30 Mg Capdr30 Mg PO DAILY #30 CAP Ref 0 12/25/16 Budesonide-Formoterol Inh (Symbicort Inh)160-4.5 Mcg/Act Aero2 Puff INH BID #1 INHALER Ref 0 12/25/16 Albuterol 8.5 GM Inh (Proair Hfa 8.5 GM Inh)90 Mcg/Act Aer2 Puff INH QID PRN ( SHORTNESS OF BREATH) #1 INHALER Ref 0 108 mcg/actuation 12/25/16 Discontinued Reported Medications Tramadol HCl (Ultram)50 Mg Tab50 Mg PO Q6HR PRN (PAIN) 07/18/15 Ranitidine Hcl (Zantac 75) Tab75 Mg PO DAILY 07/18/15 Gabapentin 600 Mg [id number] Mg PO TID 07/18/15 Discontinued Scripts Prednisone (Deltasone 20 Mg Tab)20 Mg Tab40 Mg PO DAILY 4 Days Prov:Virgil Chino 04/10/16 Azithromycin (Zithromax)250 Mg [id number] Mg PO DAILY 3 Days Prov:Virgil Chino 04/10/16 Risperidone (Risperdal)2 Mg Tab2 Mg PO BID #60 TAB Ref 0 Prov:Srinivasan Pruitt MD 11/18/15 Ranitidine 75 mg 75 Mg Tab1 Tab PO BID #60 TAB Ref 0 Prov:Srinivasan Pruitt MD 11/18/15 Benztropine Mesylate 1 Mg Tab1 Mg PO BID #60 TAB Ref 0 Prov:Srinivasan Pruitt MD 11/18/15 Lisinopril 20 mg (Prinivil 20 mg)20 Mg Tab20 Mg PO DAILY 30 Days Prov:Gurinder Pinto DO 10/06/15 Prednisone (Deltasone 10 Mg Tab)10 Mg Tab10 Mg PO DIRECTED #34 TAB Take 4 tablets for 5 days, then take 2 tablets for 5 days, then take one tablet for 4 days. Prov:Dario Neville MD 10/04/15 Cetirizine Hcl 10 Mg Tab10 Mg PO DAILY #30 TAB Prov:Dario Neville MD 10/04/15 Current Medications Medications (Trade) Dose Ordered Sig/Artur Route Start Time Stop Time Status Last Admin (NS Flush) 2 ml UNSCH PRN IVF 12/25/16 17:15 (Tylenol) 650 mg Q4H PRN PO 12/26/16 17:00 (Milk Of Magnesia Liq) 30 ml DAILY PRN PO 12/26/16 17:00 (Mag-Al Plus Susp Liq) 30 ml Q6H PRN PO 12/26/16 17:00 (Habitrol 21 Mg Patch.24 Hr) 1 patch DAILY T-DERMAL 12/27/16 09:00 12/27/16 09:56 Miscellaneous Information 1 DAILY T-DERMAL 12/27/16 09:00 (Proair Hfa Inh) 2 puff QID PRN INH 12/26/16 17:00 12/27/16 08:15 (Symbicort 160-4.5 Inh) 2 puff BID INH 12/26/16 21:00 12/27/16 10:00 (Cymbalta Dr) 30 mg DAILY PO 12/27/16 09:00 Hold (Lasix) 40 mg DAILY PO 12/27/16 09:00 12/27/16 09:57 (Neurontin) 100 mg TID PO 12/26/16 18:00 12/27/16 09:56 (Prinivil) 10 mg HS PO 12/26/16 21:00 12/26/16 20:52 (KCl) 20 meq DAILY PO 12/27/16 09:00 12/27/16 09:57 (Spiriva Inh) 18 mcg DAILY INH 12/27/16 09:00 12/27/16 09:58 (D50w (Vial) Inj) 25 ml UNSCH PRN IV PUSH 12/27/16 05:00 (Glucagon Inj) 1 mg UNSCH PRN OTHER 12/27/16 05:00 (Glucotrol) 5 mg DAILY@08 PO 12/27/16 08:00 12/27/16 09:56 Family History Patient states she lives alone Mr. Zuniga denies history mental illness and family Social History Patient states she lives doing Mr. Zuniga Patient's Strengths (min. 2) Patient verbal labile axis health care Physical Exam Patient seen screened in ED exam reviewed and agreed with vital signs blood pressure 139/84 pulse 71 respirations 18 Vital Signs Vital Signs Date Time Temp Pulse Resp B/P Pulse Ox O2 Delivery O2 Flow Rate FiO2 12/27/16 05:15 97.8 71 18 139/84 97 12/26/16 17:52 Room Air 12/26/16 15:08 21 I/O 12/26/16 12/26/16 12/27/16 08:00 16:00 00:00 Intake Total 1440 ml Balance 1440 ml Mental Status Examination Alert fairly well oriented obese elderly white female loud labile volatile Appearance Disheveled Speech: Pressured, Rapid, Other (disorganized) Orientation: x3 Memory: Impaired (describe) Thought Process: Loose Association Thought Content: Paranoid Hallucination Type: None (denies low there is thought blocking and appears to be responding to internal stimuli) Attention and Concentration: Other (poor) Suicidal Ideation: No Previous Suicide Attempts: No Previous Homicide Attempts: No Insight: Poor Judgement: Poor Affect: Other (increased range and intensity) Mood: Irritable, Manic Motor Activity: Abnormal gait-specify (uses walker) Assessment & Plan Problem List: (1) Paranoid type schizophrenia, chronic state ICD Code: F20.0 Assessment & Plan Estimated LOS: 5-7 days patient doesn't meet criteria for involuntary psychiatric hospitalization I'll do first opinion requests second opinion they feel she has capacity at this time to sign for medications. We'll restart on Respinol 2 mg twice a day of the M tab. Discharge Planning To be determined Request HC Surrog/Guard Advoc?: No Srinivasan Pruitt MD Dec 27, 2016 12:25
[2016-12-27 12:55] LABS: HEMOGLOBIN A1a 0.6 %; HEMOGLOBIN A1b 1.3 %; HEMOGLOBIN Ao 82.9 %; HEMOGLOBIN LA1C 2.1 %
[2016-12-27] MEDS ORDERED: risperiDONE ODT 2 MG TAB PO SCH (13:00)
[2016-12-27 20:37] VITALS: BP 106/62; PULSE 68; RESP 20; TEMP 98.1; O2SAT 96
[2016-12-27] MEDS: LISINOPRIL 10 MG TAB PO SCH (21:00)
[2016-12-28 05:46] VITALS: BP 137/69; PULSE 63; RESP 16; TEMP 97.8; O2SAT 95
[2016-12-28] MEDS: INSULIN ASPART SUPPLEMENTAL SCALE SQ SCH ×2 (06:36→11:00)
[2016-12-28 07:37] LABS: ANION GAP 7 MEQ/L (5-15); BLOOD UREA NITROGEN 14 MG/DL (7-18); CHLORIDE 106 MEQ/L (98-107); GLOMERULAR FILTRATION RATE 60 ML/MIN (>89); POTASSIUM 4.2 MEQ/L (3.5-5.1); SODIUM (NA) 141 MEQ/L (136-145)
[2016-12-28 07:40] LABS: HDL CHOLESTEROL 45.8 MG/DL (40.0-60.0); LDL CHOLESTEROL 72 MG/DL (0-99)
--- NOTE | 2016-12-28 08:22 | PD.CONS ---
Provisional Diagnosis Admission Date Dec 26, 2016 at 16:58 [place] I. 1. Schizophrenia, paranoid type [place] II. Deferred [place] V. GAF is 37 presently History of Present Illness Service Psychiatry Consult Requested By Dr. Pruitt Reason for Consult Second opinion Primary Care Physician Chino Hoffman MD HPI From Dr. Pruitt's H&P: Patient is a 66-year-old white female known to us from prior hospitalization most recently being under my care 11/05/15 through 11/18/15 visited [phone]. At this time patient was admitted under [place] act signed by Lisa Fall nurse practitioner stating patient found outside her home naked claiming her home was going to explode patient seen screened in the ED urine toxicology negative bladder: Negative. At the present time patient sitting in the day room on 2500 nurse Lacie present throughout session patient loud labile ranging from talking to me markedly confused and disorganized to screaming at perceived noises around her. However she is fairly well oriented she notices and [place] in [place]'s 2016 abnormality was Brenda's Day. Though she does state that she knows there are gas leaks in her trailer that she is afraid of them which is why she went outside make it to get help. She is vague about compliance with her medication states she lives that Mr. Zuniga though she is vague about whether it is her a lot. She denies having any children. Does deny any past physical or sexual abuse. Does denies suicidality or homicidality. While she denies voices she appears to be responding to internal stimuli he does have some significant thought blocking. In any event at the present time patient meets criteria for involuntary psychiatric hospitalization under the [place] act I'll do first opinion requests second opinion. The first will be compliant with her medications we'll continue her medications through the med reconciliation and also add Respinol 2 mg M tab twice a day. Hopefully we can get some further collaborating evidence and history if there is a family member that lives with her On my examination today: Patient seen and examined. Chart reviewed. Case discussed with nurse on the inpatient psychiatric unit who reports patient has been argumentative and labile on the unit. On my examination today, patient is extremely guarded and paranoid. She says "before this goes any further, I'd like to say one thing. I came into the hospital to receive breathing treatments." As I endeavored to continue the interview she says "may I please speak to my ." I encourage her to call him on the unit phone, which is in the day area. She then repeats, "I either want a telephone or a auto bumper mechanic" over and over again to most of my subsequent questions. No SI or HI voiced. Past psychiatric history: Patient initially denies. I do note that she was hospitalized here in October 2015 but she seems to dismiss this when I bring it to her attention. Family history: Patient denies any family history of mental illness. Chemical dependency history: Patient denies any abuse of drugs or alcohol. Social history: Patient refuses to provide. At this point she concludes the interview by getting up and walking off. Review of Systems ROS Limitations: Uncooperative, Poor Historian Other No physical complaints today. Past Family Social History Coded Allergies: Cipro (Verified Allergy, Severe, RASH, 04/09/16) Sulfa (Verified Allergy, Severe, hives, 04/09/16) Remeron Kerline-Tab (Verified Allergy, Mild, 04/09/16) Past Medical History See electronic medical record Active Scripts Azithromycin (Zithromax Z-Kurt)250 Mg [id number] Mg PO DIRECTED #1 DSPK Ref 0 500 MG (2 tabs) day 1, then 1 tab days 2-5. Prov:Alvin Lancaster MD 12/26/16 Prednisone (Deltasone)20 Mg Tab40 Mg PO DAILY 4 Days Ref 0 Prov:Alvin Lancaster MD 12/26/16 Reported Medications Promethazine 12.5 Mg Tab12.5 Mg PO Q6-8HR PRN (NAUSEA OR VOMITING) Ref 0 12/25/16 Fluticasone-Salmeterol Inh (Advair Diskus Inh)250-50 Mcg/Blist Aer1 Puff INH BID #1 INHALER Ref 0 Rinse mouth after use. 12/25/16 Tramadol 50 Mg Gxs71-426 Mg PO Q4H PRN (PAIN) Ref 0 12/25/16 Tiotropium Inh (Spiriva Handihaler)18 Mcg Cap18 Mcg INH DAILY #30 CAP Ref 0 1 capsule = 18 mcg 12/25/16 Potassium Chloride ER (K-Tab)20 Meq Tab20 Meq PO DAILY #30 TAB Ref 0 12/25/16 Lisinopril 10 Mg Tab10 Mg PO HS #30 TAB Ref 0 12/25/16 Glipizide 5 Mg Tab5 Mg PO DAILY #30 TAB Ref 0 Take 30 minutes before a meal 12/25/16 Gabapentin 100 Mg [id number] Mg PO TID #90 CAP Ref 0 12/25/16 Furosemide (Lasix)40 Mg Tab40 Mg PO DAILY #30 TAB Ref 0 12/25/[address] (Cymbalta DR)30 Mg Capdr30 Mg PO DAILY #30 CAP Ref 0 12/25/16 Budesonide-Formoterol Inh (Symbicort Inh)160-4.5 Mcg/Act Aero2 Puff INH BID #1 INHALER Ref 0 12/25/16 Albuterol 8.5 GM Inh (Proair Hfa 8.5 GM Inh)90 Mcg/Act Aer2 Puff INH QID PRN ( SHORTNESS OF BREATH) #1 INHALER Ref 0 108 mcg/actuation 12/25/16 Discontinued Reported Medications Tramadol HCl (Ultram)50 Mg Tab50 Mg PO Q6HR PRN (PAIN) 07/18/15 Ranitidine Hcl (Zantac 75) Tab75 Mg PO DAILY 07/18/15 Gabapentin 600 Mg Gwi485 Mg PO TID 07/18/15 Discontinued Scripts Prednisone (Deltasone 20 Mg Tab)20 Mg Tab40 Mg PO DAILY 4 Days Prov:Virgil Chino 04/10/16 Azithromycin (Zithromax)250 Mg Lum276 Mg PO DAILY 3 Days Prov:Virgil Chino 04/10/16 Risperidone (Risperdal)2 Mg Tab2 Mg PO BID #60 TAB Ref 0 Prov:Srinivasan Pruitt MD 11/18/15 Ranitidine 75 mg 75 Mg Tab1 Tab PO BID #60 TAB Ref 0 Prov:Srinivasan Pruitt MD 11/18/15 Benztropine Mesylate 1 Mg Tab1 Mg PO BID #60 TAB Ref 0 Prov:Srinivasan Pruitt MD 11/18/15 Lisinopril 20 mg (Prinivil 20 mg)20 Mg Tab20 Mg PO DAILY 30 Days Prov:Gurinder Pinto DO 10/06/15 Prednisone (Deltasone 10 Mg Tab)10 Mg Tab10 Mg PO DIRECTED #34 TAB Take 4 tablets for 5 days, then take 2 tablets for 5 days, then take one tablet for 4 days. Prov:Dario Neville MD 10/04/15 Cetirizine Hcl 10 Mg Tab10 Mg PO DAILY #30 TAB Prov:Dario Neville MD 10/04/15 Current Medications Medications (Trade) Dose Ordered Sig/Artur Route Start Time Stop Time Status Last Admin (NS Flush) 2 ml UNSCH PRN IVF 12/25/16 17:15 (Habitrol 21 Mg Patch.24 Hr) 1 patch DAILY T-DERMAL 12/27/16 09:00 12/27/16 09:56 Miscellaneous Information 1 DAILY T-DERMAL 12/27/16 09:00 (Proair Hfa Inh) 2 puff QID PRN INH 12/26/16 17:00 12/27/16 08:15 (Symbicort 160-4.5 Inh) 2 puff BID INH 12/26/16 21:00 12/27/16 21:00 (Cymbalta Dr) 30 mg DAILY PO 12/27/16 09:00 (Lasix) 40 mg DAILY PO 12/27/16 09:00 12/27/16 09:57 (Neurontin) 100 mg TID PO 12/26/16 18:00 12/27/16 18:40 (Prinivil) 10 mg HS PO 12/26/16 21:00 12/27/16 21:00 (KCl) 20 meq DAILY PO 12/27/16 09:00 12/27/16 09:57 (Spiriva Inh) 18 mcg DAILY INH 12/27/16 09:00 12/27/16 09:58 (D50w (Vial) Inj) 25 ml UNSCH PRN IV PUSH 12/27/16 05:00 (Glucagon Inj) 1 mg UNSCH PRN OTHER 12/27/16 05:00 (Glucotrol) 5 mg DAILY@08 PO 12/27/16 08:00 12/27/16 09:56 (Benadryl) 50 mg Q6H PRN PO 12/27/16 12:15 (Benadryl) 50 mg HS PRN PO 12/27/16 12:15 (Tylenol) 650 mg Q4H PRN PO 12/27/16 12:15 (Milk Of Magnesia Liq) 30 ml DAILY PRN PO 12/27/16 12:15 (Mag-Al Plus Susp Liq) 30 ml Q6H PRN PO 12/27/16 12:15 (risperDAL M-TAB) 2 mg Q12HR PO 12/27/16 13:00 Hold Patient's Strengths (min. 2) In a monitored setting. Verbally fluent. Physical Exam Physical examination completed by ED provider. On my examination today, patient is in no acute physical distress. No abnormal motor movements noted. Labs and vital signs reviewed: Vital Signs Vital Signs Date Time Temp Pulse Resp B/P Pulse Ox O2 Delivery O2 Flow Rate FiO2 12/28/16 05:46 97.8 63 16 137/69 95 12/26/16 17:52 Room Air 12/26/16 15:08 21 I/O 12/27/16 12/27/16 12/28/16 08:00 16:00 00:00 Intake Total 120 ml 1020 ml Balance 120 ml 1020 ml Lab Results Item Value Date Time White Blood Count 14.1 TH/MM3 H 12/25/16 1705 Hemoglobin 14.9 GM/DL 12/25/16 1705 Platelet Count 266 TH/MM3 12/25/16 1705 Sodium Level 141 MEQ/L 12/28/16 0628 Potassium Level 4.2 MEQ/L 12/28/16 0628 Chloride Level 106 MEQ/L 12/28/16 0628 Carbon Dioxide Level 28.0 MEQ/L 12/28/16 0628 Anion Gap 7 MEQ/L 12/28/16 0628 Blood Urea Nitrogen 14 MG/DL 12/28/16 0628 Estimat Glomerular Filtration Rate 60 ML/MIN L 12/28/16 0628 Creatinine 0.93 MG/DL 12/28/16 0628 Random Glucose 129 MG/DL H 12/28/16 0628 Calcium Level 10.5 MG/DL H 12/28/16 0628 Ethyl Alcohol Level LESS THAN 3 MG/DL 12/25/16 1705 Toxicology negative. Urinalysis results reviewed. Mental Status Examination Patient is casually dressed. She is somewhat disheveled but appears to be maintaining basic hygiene. She is awake and alert and oriented to person and hospital at least but is unwilling to participate in more extensive mental status testing. Speech is somewhat terse and angry. Mood and affect are restricted and dysphoric. Thought process perseverative. No loosening of associations. Paranoia is present. No AVH. No SI or HI but it is unclear that the patient is reliable to contract for safety in her present state. Insight and judgment seem poor. Assessment & Plan Problem List: (1) Paranoid type schizophrenia, chronic state ICD Code: F20.0 Assessment & Plan Given the circumstances of her presentation here in her presentation on my examination today, I concur with Dr. Pruitt that the patient meets criteria for involuntary psychiatric hospitalization under the [place] act. I've completed the second opinion paperwork. Further care as per Dr. Pruitt. Thank you very much for this consultation. Signing off. Ubaldo Hernandez MD Dec 28, 2016 08:22
[2016-12-28] MEDS ORDERED: NICOTINE 21 MG/24 HR PATCH T-DERMAL SCH (09:00)
[2016-12-28] MEDS: REMOVE OLD PATCH T-DERMAL SCH (09:00)
[2016-12-28] MEDS: NICOTINE 21 MG/24 HR PATCH T-DERMAL SCH (09:00)
[2016-12-28] MEDS: BUDESONIDE-FORMOTEROL 160/4.5 MCG INHALER INH SCH ×2 (09:00→21:10)
[2016-12-28] MEDS: DULoxetine HCl DR 30 MG CAP PO SCH (10:42)
[2016-12-28] MEDS: POTASSIUM CHLORIDE 20 MEQ CONTROLLED RELEASE TAB PO SCH (10:42)
[2016-12-28] MEDS: GABAPENTIN 100 MG CAP PO SCH ×3 (10:42→17:16)
[2016-12-28] MEDS: TIOTROPIUM BROMIDE 18 MCG INH INH SCH (10:42)
[2016-12-28] MEDS: FUROSEMIDE 40 MG TAB PO SCH (10:43)
[2016-12-28] MEDS: glipiZIDE 5 MG TAB PO SCH (10:43)
--- NOTE | 2016-12-28 15:06 | HHI.PYPN ---
Subjective Remarks Patient discussed with treatment team and medical student Genesis patient seen on unit, patient remains vigilant guarded somewhat irritable. Showing increased resistance to cooperating with treatment. Now refusing to sign for medications. We'll continue of premedication today if patient refuses consider her competency with possible requesting for healthcare surrogate and guardian advocate tomorrow Review of Systems Except as stated in HPI: all other systems reviewed are Neg Objective Alert: Yes [place]: Person, Place, Date (partial) Mood: Angry Affect: Other (congruent) Memory Intact: Comment (not formally tetsed) Hallucinations: Other (appears internally preocupied) Delusions: Yes Delusion Type: Paranoid Suicidal: Ideation (deneis ) Homicidal: Ideation (deneis) Insight/Judgement Poor Labs Test 12/28/16 06:28 Sodium Level 141 MEQ/L Potassium Level 4.2 MEQ/L Chloride Level 106 MEQ/L Carbon Dioxide Level 28.0 MEQ/L Anion Gap 7 MEQ/L Blood Urea Nitrogen 14 MG/DL Creatinine 0.93 MG/DL Estimat Glomerular Filtration 60 ML/MIN Rate Random Glucose 129 MG/DL Calcium Level 10.5 MG/DL Triglycerides Level 198 MG/DL Cholesterol Level 157 MG/DL LDL Cholesterol 72 MG/DL HDL Cholesterol 45.8 MG/DL Cholesterol/HDL Ratio 3.42 RATIO Vitals/IOs Vital Signs Date Time Temp Pulse Resp B/P Pulse Ox O2 Delivery O2 Flow Rate FiO2 12/28/16 05:46 97.8 63 16 137/69 95 12/26/16 17:52 Room Air 12/26/16 15:08 21 Intake and Output 12/27/16 12/27/16 12/28/16 08:00 16:00 00:00 Intake Total 120 ml 1020 ml Balance 120 ml 1020 ml Assessment & Plan Problem List: (1) Paranoid type schizophrenia, chronic state ICD Code: F20.0 Assessment & Plan Estimated LOS: days patient remained psychotic irritable and paranoid, showing some increased resistance to treatment. Consider changing status to lack capacity for admission and treatment Justification for Cont. Inpt. At this time patient will decompensate if placed in the lower level of care Discharge Planning To be determined Srinivasan Pruitt MD Dec 28, 2016 15:06
--- NOTE | 2016-12-28 16:17 | HHI.PR ---
Subjective Remarks Follow-up COPD and diabetes mellitus. She is doing okay no shortness of breath. Inhalers helping. Discussed with RN Objective Vitals Vital Signs Date Time Temp Pulse Resp B/P Pulse Ox O2 Delivery O2 Flow Rate FiO2 12/28/16 05:46 97.8 63 16 137/69 95 12/27/16 20:37 98.1 68 20 106/62 96 I/O 12/27/16 12/27/16 12/27/16 12/28/16 12/28/16 12/28/16 06:59 14:59 22:59 06:59 14:59 22:59 Intake Total 120 ml 1020 ml 0 ml 720 ml Balance 120 ml 1020 ml 0 ml 720 ml Intake Oral 120 ml 1020 ml 0 ml 720 ml # Voids 1 1 2 # Bowel Movements 1 Result Diagram: 12/25/16 1705 12/28/16 0628 Objective Remarks GENERAL: This is a well-nourished, well-developed patient, in no apparent distress. SKIN: No rashes, ecchymoses or lesions. Cool and dry. HEAD: Atraumatic. Normocephalic. No temporal or scalp tenderness. EYES: Extraocular motions intact. No scleral icterus. No injection or drainage. CARDIOVASCULAR: Regular rate and rhythm without murmurs, gallops, or rubs. RESPIRATORY: Clear to auscultation. Breath sounds equal bilaterally. No wheezes , rales, or rhonchi. GASTROINTESTINAL: Abdomen soft, non-tender, nondistended. No guarding. MUSCULOSKELETAL: Extremities without clubbing, cyanosis, or edema. No joint tenderness, effusion, or edema noted. No calf tenderness. Negative Homans sign bilaterally. NEUROLOGICAL: Awake and alert. No focal deficits identified. Motor and sensory grossly within normal limits. Five out of 5 muscle strength in all muscle groups. Normal speech. A/P Assessment and Plan This 66-year-old female patient who is currently an inpatient psychiatric center we have been consulted for assistance with medical management including COPD. Patient appears to be a poor historian and is agitated with questioning therefore information gathered from patient as well as prior computerized charting. Patient has a past medical history which includes schizophrenia, diabetes mellitus type 2, hypertension and COPD. Paranoid schizophrenia management per psychiatric team COPD chronic does not appear to be in acute exacerbation Continue Symbicort scheduled, Spiriva scheduled and albuterol as needed DC Advair Chest x-ray reviewed by myself as well as Dr. Parrish reveals no acute disease Mild leukocytosis 14.1 possibly stress response will recheck CBC Diabetes mellitus continue home glipizide with Accu-Cheks before meals at bedtime sliding scale insulin coverage. A1c 7.1. Decreased sliding-scale to once a day Hypertension continue lisinopril DVT prophylaxis patient is ambulatory Erasto Mcmahon MD Dec 28, 2016 16:17
[2016-12-28 16:38] LABS: HEMOGLOBIN A1a 0.6 %; HEMOGLOBIN A1b 1.3 %; HEMOGLOBIN Ao 82.9 %; HEMOGLOBIN LA1C 2.1 %; HEMOGLOBIN P3 3.8 %
[2016-12-28 18:00] VITALS: BP 141/77; PULSE 85; RESP 16; TEMP 97.9; O2SAT 96
[2016-12-28] MEDS: LISINOPRIL 10 MG TAB PO SCH (21:10)
[2016-12-29 06:19] VITALS: BP 141/74; PULSE 71; RESP 16; TEMP 97.9; O2SAT 94
[2016-12-29] MEDS: INSULIN ASPART SUPPLEMENTAL SCALE SQ SCH (08:00)
[2016-12-29] MEDS: glipiZIDE 5 MG TAB PO SCH ×2 (08:00→09:54)
[2016-12-29] MEDS: POTASSIUM CHLORIDE 20 MEQ CONTROLLED RELEASE TAB PO SCH (09:00)
[2016-12-29] MEDS: BUDESONIDE-FORMOTEROL 160/4.5 MCG INHALER INH SCH ×3 (09:00→21:15)
[2016-12-29] MEDS: TIOTROPIUM BROMIDE 18 MCG INH INH SCH (09:00)
[2016-12-29] MEDS: NICOTINE 21 MG/24 HR PATCH T-DERMAL SCH (09:00)
[2016-12-29] MEDS: REMOVE OLD PATCH T-DERMAL SCH (09:00)
[2016-12-29] MEDS: GABAPENTIN 100 MG CAP PO SCH ×3 (09:54→18:48)
[2016-12-29] MEDS: FUROSEMIDE 40 MG TAB PO SCH (09:54)
[2016-12-29] MEDS: DULoxetine HCl DR 30 MG CAP PO SCH (09:55)
--- NOTE | 2016-12-29 14:03 | HHI.PYPN ---
Subjective Remarks Patient seen on unit with medical student Genesis and nurse Sarah, patient showing some mixed compliance with medication refusing the Respinol saying it made her feel like she was "bottoming out" however she is willing to have a trial of lithium stating that had "normalized" her. However patient showing a little elevation in her creatinine. We will monitor that started on lithium 150 mg twice a day recheck CMP in 2 days Review of Systems Except as stated in HPI: all other systems reviewed are Neg Objective Alert: Yes [place]: Person, Place, Date (partial) Mood: Angry Affect: Other (congruent) Memory Intact: Comment (not formally tetsed) Hallucinations: Other (appears internally preocupied) Delusions: Yes Delusion Type: Paranoid Suicidal: Ideation (deneis ) Homicidal: Ideation (deneis) Insight/Judgement Poor Vitals/IOs Vital Signs Date Time Temp Pulse Resp B/P Pulse Ox O2 Delivery O2 Flow Rate FiO2 12/29/16 06:19 97.9 71 16 141/74 94 12/26/16 17:52 Room Air 12/26/16 15:08 21 Intake and Output 12/28/16 12/28/16 12/29/16 08:00 16:00 00:00 Intake Total 0 ml 720 ml 960 ml Balance 0 ml 720 ml 960 ml Assessment & Plan Problem List: (1) Paranoid type schizophrenia, chronic state ICD Code: F20.0 Assessment & Plan Estimated LOS: days patient remains somewhat disorganized, psychotic, though able to discuss with us medication management and alternatives. We'll discontinue the Respinol offered lithium low-dose initially as read monitor also her kidney function. Justification for Cont. Inpt. At this time patient will decompensate if placed in a lower level of care Discharge Planning To be determined Srinivasan Pruitt MD Dec 29, 2016 14:03
[2016-12-29] MEDS ORDERED: PILL SPLITTER OTHER PRN (14:15)
[2016-12-29] MEDS: LITHIUM CARBONATE 300 MG TAB PO SCH ×2 (15:20→21:14)
--- NOTE | 2016-12-29 15:22 | HHI.PR ---
Blank section for building Chart reviewed patient appears medically stable will sign off. If patient's condition changes or further assistance is needed please reconsult Written by Hayley Alicea, acting as scribe for Dr. Flangaan on 12/29/16 at 15:20. Hayley Alicea Dec 29, 2016 15:22
[2016-12-29 18:22] VITALS: BP 126/66; PULSE 68; RESP 16; TEMP 98; O2SAT 98
[2016-12-29] MEDS: LISINOPRIL 10 MG TAB PO SCH (21:13)
[2016-12-30 06:39] VITALS: BP 95/73; PULSE 65; RESP 18; TEMP 97.9; O2SAT 96
[2016-12-30] MEDS: INSULIN ASPART SUPPLEMENTAL SCALE SQ SCH (08:00)
[2016-12-30] MEDS: TIOTROPIUM BROMIDE 18 MCG INH INH SCH ×2 (09:00→09:55)
[2016-12-30] MEDS: NICOTINE 21 MG/24 HR PATCH T-DERMAL SCH ×2 (09:00→09:58)
[2016-12-30] MEDS: BUDESONIDE-FORMOTEROL 160/4.5 MCG INHALER INH SCH ×2 (09:00→20:28)
[2016-12-30] MEDS: REMOVE OLD PATCH T-DERMAL SCH (09:00)
[2016-12-30] MEDS: DULoxetine HCl DR 30 MG CAP PO SCH (09:55)
[2016-12-30] MEDS: POTASSIUM CHLORIDE 20 MEQ CONTROLLED RELEASE TAB PO SCH (09:55)
[2016-12-30] MEDS: GABAPENTIN 100 MG CAP PO SCH ×3 (09:56→17:27)
[2016-12-30] MEDS: LITHIUM CARBONATE 300 MG TAB PO SCH ×2 (09:56→20:28)
[2016-12-30] MEDS: FUROSEMIDE 40 MG TAB PO SCH (10:01)
--- NOTE | 2016-12-30 12:28 | HHI.PYPN ---
Subjective Remarks Patient seen in her room with nurse Estela, chart reviewed, staff states the patient continue to show poor judgment in the dayroom during meals continuing to attempt to take food off of the patient's tray seated showing no insight into her problems, denying her need to watch her diet. Patient seen by me in her room when I attempted to discuss this with patient she became anger at me while patient acknowledges having diabetes refuses to acknowledge the need for dietary restriction. Patient became more angry and paranoid towards me stating that she will now refuse to take her medication. She has taken her lithium since it was ordered. We'll be rechecking her CMP tomorrow morning and check lithium level area patient scheduled for [facility] tomorrow Review of Systems Except as stated in HPI: all other systems reviewed are Neg Objective Alert: Yes [place]: Person, Place, Date (partial) Mood: Angry Affect: Other (congruent) Memory Intact: Comment (not formally tetsed) Hallucinations: Other (appears internally preocupied) Delusions: Yes Delusion Type: Paranoid Suicidal: Ideation (deneis ) Homicidal: Ideation (deneis) Insight/Judgement Very poor Vitals/IOs Vital Signs Date Time Temp Pulse Resp B/P Pulse Ox O2 Delivery O2 Flow Rate FiO2 12/30/16 06:39 97.9 65 18 95/73 96 12/26/16 17:52 Room Air 12/26/16 15:08 21 Intake and Output 12/29/16 12/29/16 12/30/16 08:00 16:00 00:00 Intake Total 120 ml 240 ml 1200 ml Balance 120 ml 240 ml 1200 ml Assessment & Plan Problem List: (1) Paranoid type schizophrenia, chronic state ICD Code: F20.0 Assessment & Plan Estimated LOS: days patient continues to be vigilant paranoid irritable and labile. Compliant medications. Patient scheduled for [facility] tomorrow Justification for Cont. Inpt. At this time patient will decompensate if placed in the lower level of care Discharge Planning To be determined Srinivasan Pruitt MD Dec 30, 2016 12:28
[2016-12-30 18:00] VITALS: BP 115/55; PULSE 64; RESP 18; TEMP 98.3; O2SAT 95
[2016-12-30] MEDS: LISINOPRIL 10 MG TAB PO SCH (20:27)
[2016-12-31 05:55] VITALS: BP 109/56; PULSE 69; RESP 16; TEMP 98.3; O2SAT 95
[2016-12-31] MEDS: INSULIN ASPART SUPPLEMENTAL SCALE SQ SCH (08:00)
[2016-12-31 08:05] LABS: ANION GAP 6 MEQ/L (5-15); AST (GOT) 13 U/L (15-37); BLOOD UREA NITROGEN 16 MG/DL (7-18); CHLORIDE 102 MEQ/L (98-107); GLOMERULAR FILTRATION RATE 58 ML/MIN (>89); POTASSIUM 4.3 MEQ/L (3.5-5.1); SODIUM (NA) 137 MEQ/L (136-145)
[2016-12-31 08:08] LABS: ALKALINE PHOSPHATASE 156 U/L (45-117); ALT (GPT) 31 U/L (10-53); TOTAL BILIRUBIN ADULT 0.7 MG/DL (0.2-1.0)
[2016-12-31] MEDS: TIOTROPIUM BROMIDE 18 MCG INH INH SCH (09:00)
[2016-12-31] MEDS: NICOTINE 21 MG/24 HR PATCH T-DERMAL SCH (09:00)
[2016-12-31] MEDS: REMOVE OLD PATCH T-DERMAL SCH (09:00)
[2016-12-31] MEDS: BUDESONIDE-FORMOTEROL 160/4.5 MCG INHALER INH SCH (09:00)
[2016-12-31] MEDS: POTASSIUM CHLORIDE 20 MEQ CONTROLLED RELEASE TAB PO SCH (09:16)
[2016-12-31] MEDS: FUROSEMIDE 40 MG TAB PO SCH (09:16)
[2016-12-31] MEDS: LITHIUM CARBONATE 300 MG TAB PO SCH (09:16)
[2016-12-31] MEDS: GABAPENTIN 100 MG CAP PO SCH ×2 (09:16→11:37)
[2016-12-31] MEDS: glipiZIDE 5 MG TAB PO SCH (09:16)
[2016-12-31] MEDS: DULoxetine HCl DR 30 MG CAP PO SCH (09:17)
[2016-12-31] MEDS ORDERED: SPIRCAP INH (12:18)
[2016-12-31] MEDS ORDERED: LISI10TA3 PO (12:18)
[2016-12-31] MEDS ORDERED: LITH300T3 PO (12:18)
[2016-12-31] MEDS ORDERED: GLIP5 PO (12:18)
[2016-12-31] MEDS ORDERED: POTA20TA5 PO (12:18)
[2016-12-31] MEDS ORDERED: FURO40TA PO (12:18)
[2016-12-31] MEDS ORDERED: DULO1CAP2 PO (12:18)
[2016-12-31] MEDS ORDERED: GABA100C4 PO (12:18)
[2016-12-31] MEDS ORDERED: SYMB160A INH (12:18)
--- NOTE | 2016-12-31 12:26 | HHI.DS ---
Psychiatry Discharge Summary Inpatient Psychiatric care?: Yes Advance Directive: No Reason Not Provided: Due to Patient Condition Mental Health AdvanceDirective: No Health Care Proxy: No Admission Admission Date Dec 26, 2016 at 16:58 Admission Diagnosis: (1) Paranoid type schizophrenia, chronic state with acute exacerbation ICD Code: F20.[address] Pruitt's H&P: Patient is a 66-year-old white female known to us from prior hospitalization most recently being under my care 11/05/15 through 11/18/15 visited [phone]. At this time patient was admitted under [place] act signed by Lisa Fall nurse practitioner stating patient found outside her home naked claiming her home was going to explode patient seen screened in the ED urine toxicology negative bladder: Negative. At the present time patient sitting in the day room on 2500 nurse Lacie present throughout session patient loud labile ranging from talking to me markedly confused and disorganized to screaming at perceived noises around her. However she is fairly well oriented she notices and [place] in [place] 2016 abnormality was Brenda's Day. Though she does state that she knows there are gas leaks in her trailer that she is afraid of them which is why she went outside make it to get help. She is vague about compliance with her medication states she lives that Mr. Zuniga though she is vague about whether it is her a lot. She denies having any children. Does deny any past physical or sexual abuse. Does denies suicidality or homicidality. While she denies voices she appears to be responding to internal stimuli he does have some significant thought blocking. In any event at the present time patient meets criteria for involuntary psychiatric hospitalization under the [place] act I'll do first opinion requests second opinion. The first will be compliant with her medications we'll continue her medications through the med reconciliation and also add Respinol 2 mg M tab twice a day. Hopefully we can get some further collaborating evidence and history if there is a family member that lives with her On my examination today: Patient seen and examined. Chart reviewed. Case discussed with nurse on the inpatient psychiatric unit who reports patient has been argumentative and labile on the unit. On my examination today, patient is extremely guarded and paranoid. She says "before this goes any further, I'd like to say one thing. I came into the hospital to receive breathing treatments." As I endeavored to continue the interview she says "may I please speak to my ." I encourage her to call him on the unit phone, which is in the day area. She then repeats, "I either want a telephone or a aircraft skin burnisher" over and over again to most of my subsequent questions. No SI or HI voiced. Past psychiatric history: Patient initially denies. I do note that she was hospitalized here in October 2015 but she seems to dismiss this when I bring it to her attention. Family history: Patient denies any family history of mental illness. Chemical dependency history: Patient denies any abuse of drugs or alcohol. Social history: Patient refuses to provide. At this point she concludes the interview by getting up and walking off. Tobacco Use In Past 30 Days: Refused To Answer Alcohol Use: Never Hospital Course Patient's hospital course is characterized by difficulty with cooperation with diet and with medication. Patient finally did agree to a course with lithium. She has been compliant with that states is open to calm her mood. Though she has shown some episodes of stealing food off of the patient's platelets she showing no real contractions for that. However she denies suicidality homicidality voices or visions. We did meet with patient [place] today along with patient's . Patient's wants her home states he feels quite safe with her being home. He does appear quite frail appears to be significant amount of dependence upon her to help him with his ADLs food medication patient showing also good attention and focus and conversation with her . Judge Weinstein has slits of the [place] act and order the patient to be discharged to her today. Patient will be discharged into her with Rx 1 month. With referral to home health care with psychiatric nurse, education management, PT, and home health aide. Also the follow-up with her PCP Results Blood Pressure 109 / 56 Vital Signs Date Time Temp Pulse Resp B/P Pulse Ox O2 Delivery O2 Flow Rate FiO2 12/31/16 05:55 98.3 69 16 109/56 95 Laboratory Tests Test 12/31/16 07:05 Estimat Glomerular Filtration 58 ML/MIN (>89) Rate Random Glucose 141 MG/DL (74-106) Calcium Level 10.6 MG/DL (8.5-10.1) Aspartate Amino Transf 13 U/L (15-37) (AST/SGOT) Alkaline Phosphatase 156 U/L (45-117) Laboratory Results Test 12/28/16 06:28 Hemoglobin A1c 7.2 % (4.3-6.0) Triglycerides Level 198 MG/DL (42-150) Cholesterol Level 157 MG/DL (120-200) LDL Cholesterol 72 MG/DL (0-99) HDL Cholesterol 45.8 MG/DL (40.0-60.0) Summary of Procedures None done Imaging Last Impressions Chest X-Ray 12/25/16 1706 Signed Impressions: Service Date/Time: Sunday, December 25, 2016 17:04 - CONCLUSION: No acute disease. Gurinder Teran MD Pending results at discharge: No Medications # of Antipsychotic meds at D/C: 0 Approp Antipsych med options 1 - Minimum of three failed multiple trials of monotherapy. 2 - Documented plan to taper to monotherapy due to previous use of multiple meds OR cross-taper in progress at D/C. 3 - Documentation of augmentation of Clozapine. 4 - Justification other than those listed in allowable values 1-3, document here : Discharge Discharge Date: Dec 31, 2016 Discharge Diagnosis: (1) Paranoid type schizophrenia, chronic state with acute exacerbation Diagnosis: Principal ICD Code: F20.0 Mental Status Exam at Disch Alert oriented white female, she has normal active, mood is euthymic to somewhat intense affect shows slightly increased range and intensity. Speech regular slightly increased though no formal thought disorders auditory visual hallucinations no delusions noted. Insight and judgment poor, cognition grossly intact Pt Condition on Discharge: Stable Discharge Disposition: Discharge Home Discharge Instructions Diet Instructions: Diabetic Diet Additional Diet Instructions: 1800-calorie diabetic diet Activities you can perform: Regular-No Restrictions Scheduled Appointment: follow-up saafe, and home health care referral Discharge Time > 30 minutes Discharge/Advance Care Plan Health Problems: (1) Paranoid type schizophrenia, chronic state Goals to promote your health * To prevent worsening of your condition and complications * To maintain your health at the optimal level Directions to meet your goals Take your medications as prescribed Follow your dietary instruction Follow activity as directed Keep your appointments as scheduled Take your immunizations and boosters as scheduled If your symptoms worsen call your PCP, if no PCP go to Urgent Care Center or Emergency Room For 31/05 questions related to your inpatient stay or results of tests pending at discharge, please contact Dr. Srinivasan Pruitt at Smoking is Dangerous to Your Health. Avoid second hand smoking Srinivasan Pruitt MD Dec 31, 2016 12:26
== END 2016-12-31 14:25 | disposition home or self-care (01) | DRG 885 ==
LOC: NEPA 16:22 → NEDA 12-26 16:58 → H250 12-26 18:15
PROVIDERS: ADMIT Psychiatry & Neurology Psychiatry; ATTEND Psychiatry & Neurology Psychiatry
DX: F20.0 Paranoid schizophrenia (principal); I50.9 Heart failure, unspecified; J44.9 Chronic obstructive pulmonary disease, unspecified; E11.9 Type 2 diabetes mellitus without complications; I10 Essential (primary) hypertension; Z88.1 Allergy status to other antibiotic agents; Z88.2 Allergy status to sulfonamides; Z88.8 Allergy status to other drugs, medicaments and biological substances; F17.210 Nicotine dependence, cigarettes, uncomplicated; M19.90 Unspecified osteoarthritis, unspecified site
CPT/HCPCS: 71010; 80048; 80053; 80061; 80307; 80320; 81001; 82550; 82948; 83036; 83605; 83735; 83880; 84484; 85025; 93005; 94640; 94664; J1200; J1815; P9612